=== PATIENT | female | born 1940 | race Caucasian/White ===

== ENCOUNTER 2022-09-22 12:35 | Observation (INO) ==
[2022-09-22 14:09] VITALS: BMI 26.9
--- NOTE | 2022-09-22 15:16 | EKG ---
Test Reason : sob Blood Pressure : */* mmHG Vent. Rate : 69 BPM Atrial Rate : 69 BPM P-R Int : 132 ms QRS Dur : 92 ms QT Int : 426 ms P-R-T Axes : 57 27 47 degrees QTc Int : 456 ms Normal sinus rhythm Normal ECG No previous ECGs available Confirmed by Sukhi Cunningham ([id number]) on 09/24/2022 3:47:03 PM Referred By: Confirmed By: Sukhi Cunningham
[2022-09-22 15:35] LABS: BASOPHILS % (AUTO) 0.5 % (0.2-1.0); EOSINOPHILS # (AUTO) 0.1 x10^3/uL (0.0-0.2); HEMATOCRIT 32.1 % (36.0-47.0); HEMOGLOBIN 11.1 g/dL (12.0-16.0); LYMPHOCYTES # (AUTO) 1.1 X10^3/uL (1.3-2.9); LYMPHOCYTES % (AUTO) 21.5 % (21.0-51.0); MEAN CORPUSCULAR HGB CONC 34.7 g/dL (33.0-35.0); MEAN CORPUSCULAR VOLUME 89.4 fL (80.0-100.0); MEAN PLATELET VOLUME 9.3 fL (7.4-11.0); MONOCYTES # (AUTO) 0.4 x10^3/uL (0.3-0.8); MONOCYTES % (AUTO) 7.3 % (0.0-13.0); NEUTROPHILS # (AUTO) 3.4 x10^3/uL (2.2-4.8); NEUTROPHILS % (AUTO) 68.7 % (42.0-75.0); RED CELL DISTRIBUTION WIDTH 13.8 % (11.6-16.5)
[2022-09-22 15:46] LABS: ALANINE AMINOTRANSFERASE 14 Units/L (12-78); ALBUMIN 3.1 g/dL (3.4-5.0); ALKALINE PHOSPHATASE 101 Units/L (46-116); ASPARTATE AMINO TRANSFERASE 17 Units/L (15-37); BLOOD UREA NITROGEN 19 mg/dL (7-18); CALCIUM 8.4 mg/dL (8.5-10.1); CARBON DIOXIDE 36.4 mmol/L (21-32); CHLORIDE 104 mmol/L (98-107); COR CA(FOR HYPOALB) 9.1 mg/dL (8.5-10.1); CREATINE KINASE 120 Units/L (26-192); CREATININE 1.51 mg/dL (0.55-1.02); SODIUM 144 mmol/L (136-145); TOTAL PROTEIN 6.4 g/dL (6.4-8.2); eGFR NON BLACK RACES 35 (>60)
--- NOTE | 2022-09-22 16:11 | RAD ---
HISTORYCHF SOBSTUDYAP chestCOMPARISONNoneFINDINGSHeart size normal. There is mild pulmonary vascular congestion and interstitial prominence without evidence for airspace consolidation, pneumothorax or pleural fluid.IMPRESSIONMild pulmonary vascular congestion with interstitial prominence concerning for borderline CHF. Follow-up suggested.Electronically signed by: SONYA WHATLEY (Sep 22, 2022 16:09:55)
[2022-09-22] MEDS: LASIX IVP SCH (17:18)
[2022-09-22 18:12] LABS: BILIRUBIN,URINE NEGATIVE (NEGATIVE); BLOOD/HEMOGLOBIN,URINE NEGATIVE (NEGATIVE); GLUCOSE, URINE NEGATIVE (NEGATIVE); KETONES,URINE NEGATIVE (NEGATIVE); LEUKOCYTE ESTERASE ,URINE NEGATIVE (NEGATIVE); NITRITES,URINE NEGATIVE (NEGATIVE); PROTEIN,URINE NEGATIVE (NEGATIVE); UROBILINOGEN,URINE NORMAL (NORMAL)
[2022-09-22 18:14] LABS: APPEARANCE,URINE CLEAR (CLEAR); COLOR,URINE STRAW (YELLOW)
[2022-09-22 22:23] LABS: INR 1.52 (0.8-1.3)
[2022-09-22] MEDS ORDERED: COUMADIN TAB 2 MG (JANTOVEN) PO SCH (23:00)
[2022-09-22] MEDS ORDERED: ZOLOFT ONE (23:08)
[2022-09-22] MEDS: ZOLOFT PO SCH (23:11)
[2022-09-22] MEDS: NEURONTIN CAP 300 MG PO SCH (23:11)
[2022-09-23] MEDS: NEURONTIN CAP 300 MG PO SCH ×3 (05:27→21:06)
[2022-09-23 06:42] LABS: BASOPHILS % (AUTO) 0.6 % (0.2-1.0); EOSINOPHILS # (AUTO) 0.1 x10^3/uL (0.0-0.2); HEMATOCRIT 30.9 % (36.0-47.0); HEMOGLOBIN 10.8 g/dL (12.0-16.0); LYMPHOCYTES # (AUTO) 1.1 X10^3/uL (1.3-2.9); LYMPHOCYTES % (AUTO) 24.6 % (21.0-51.0); MEAN CORPUSCULAR HEMOGLOBIN 31.3 pg (27.0-34.0); MEAN CORPUSCULAR VOLUME 89.6 fL (80.0-100.0); MEAN PLATELET VOLUME 9.7 fL (7.4-11.0); MONOCYTES # (AUTO) 0.4 x10^3/uL (0.3-0.8); MONOCYTES % (AUTO) 8.3 % (0.0-13.0); NEUTROPHILS # (AUTO) 2.8 x10^3/uL (2.2-4.8); NEUTROPHILS % (AUTO) 64.5 % (42.0-75.0); RED BLOOD COUNT 3.44 X10^6/uL (3.5-5.4); RED CELL DISTRIBUTION WIDTH 13.6 % (11.6-16.5); WHITE BLOOD COUNT 4.3 X10^3/uL (3.6-10.0)
[2022-09-23 06:55] LABS: ALANINE AMINOTRANSFERASE 14 Units/L (12-78); ALBUMIN 2.9 g/dL (3.4-5.0); ALKALINE PHOSPHATASE 94 Units/L (46-116); ASPARTATE AMINO TRANSFERASE 17 Units/L (15-37); BLOOD UREA NITROGEN 19 mg/dL (7-18); CALCIUM 8.1 mg/dL (8.5-10.1); CARBON DIOXIDE 31.6 mmol/L (21-32); CHLORIDE 105 mmol/L (98-107); CREATININE 1.39 mg/dL (0.55-1.02); SODIUM 143 mmol/L (136-145); TOTAL PROTEIN 6.1 g/dL (6.4-8.2); eGFR NON BLACK RACES 39 (>60)
[2022-09-23 06:56] LABS: INR 1.54 (0.8-1.3)
[2022-09-23] MEDS ORDERED: ZOLOFT ONE ×2 (07:59→20:40)
[2022-09-23] MEDS: LASIX IVP SCH (08:37)
[2022-09-23] MEDS: VITAMIN D3 125 mcg (5,000 UNITS) PO SCH (08:38)
[2022-09-23] MEDS: LOPRESSOR TAB 25 MG PO SCH (08:38)
[2022-09-23] MEDS: ZOLOFT PO SCH ×2 (08:38→21:07)
[2022-09-23] MEDS: PROTONIX TAB 40 MG PO SCH (08:38)
[2022-09-23] MEDS ORDERED: COUMADIN TAB 4 MG (JANTOVEN) PO SCH (09:00)
[2022-09-23] MEDS: NORCO 10/325 TAB PO PRN ×2 (10:50→20:00)
[2022-09-23] MEDS ORDERED: POTASSIUM CHL 60 MEQ/NS 0.45% 500 ML IV PRN (10:55)
[2022-09-23] MEDS ORDERED: K-RIDER 10 MEQ/NS 100 ML 10 MEQ/100 ML BAG IV PRN (10:55)
[2022-09-23] MEDS ORDERED: KLOR-CON PO PRN (10:55)
[2022-09-23] MEDS ORDERED: POTASSIUM CHL 40 MEQ/NS 0.45% 500 ML IV PRN (10:55)
[2022-09-23] MEDS ORDERED: K-DUR TAB 20 MEQ PO PRN (10:55)
[2022-09-23] MEDS ORDERED: MICRO K EXTEN CAP 10 MEQ PO PRN (10:55)
[2022-09-23] MEDS ORDERED: NS 100 ML IV 100 ML ONE (11:47)
[2022-09-23] MEDS: MAGNESIUM SULFATE 1 GRAM/100 mL PREMIX 1 G/100 ML BAG IV PRN ×3 (11:52→15:01)
[2022-09-23] MEDS: POTASSIUM CHLORIDE LIQ 20 MEQ UDC PO PRN ×2 (11:53→16:40)
--- NOTE | 2022-09-23 12:42 | CT ---
HISTORYRIGHT SIDED HEADACHE, HAND NUMBNESSSTUDYBRAIN W/O CONCOMPARISONNoneTECHNIQUEMultiple CT axial images of the head were obtained without IV contrast. Coronal and sagittal images were reconstructed. Dose reduction techniques included Automated Exposure Control (AEC) and adjustment of mA and kV.FINDINGSAge-related findings include central and cortical atrophy with areas of low density in the periventricular white matter compatible with micro-ischemic changes. Other grimes and white matter have normal differentiation.There is no mass, shift, or hemorrhage. Cerebellar tonsils are at an appropriate level. No fluid in the sinuses or mucosal thickening to suggest sinusitis. There is no mastoid effusion.IMPRESSION1. No acute findingElectronically signed by: Nile Soliz (Sep 23, 2022 12:42:16)
[2022-09-23] MEDS ORDERED: LIPITOR TAB 20 MG PO SCH (21:00)
[2022-09-24] MEDS: NEURONTIN CAP 300 MG PO SCH (05:20)
[2022-09-24 06:34] LABS: BASOPHILS % (AUTO) 0.6 % (0.2-1.0); EOSINOPHILS # (AUTO) 0.2 x10^3/uL (0.0-0.2); EOSINOPHILS % (AUTO) 4.4 % (0.9-2.9); HEMATOCRIT 30.2 % (36.0-47.0); HEMOGLOBIN 10.2 g/dL (12.0-16.0); LYMPHOCYTES # (AUTO) 1.2 X10^3/uL (1.3-2.9); LYMPHOCYTES % (AUTO) 33.3 % (21.0-51.0); MEAN CORPUSCULAR HEMOGLOBIN 31.1 pg (27.0-34.0); MEAN CORPUSCULAR HGB CONC 33.9 g/dL (33.0-35.0); MEAN CORPUSCULAR VOLUME 91.5 fL (80.0-100.0); MEAN PLATELET VOLUME 9.6 fL (7.4-11.0); MONOCYTES # (AUTO) 0.3 x10^3/uL (0.3-0.8); MONOCYTES % (AUTO) 7.3 % (0.0-13.0); NEUTROPHILS % (AUTO) 54.4 % (42.0-75.0); RED CELL DISTRIBUTION WIDTH 13.9 % (11.6-16.5); WHITE BLOOD COUNT 3.6 X10^3/uL (3.6-10.0)
[2022-09-24 06:36] LABS: INR 1.76 (0.8-1.3)
[2022-09-24 06:45] LABS: ALANINE AMINOTRANSFERASE 12 Units/L (12-78); ALBUMIN 2.7 g/dL (3.4-5.0); ALKALINE PHOSPHATASE 89 Units/L (46-116); ASPARTATE AMINO TRANSFERASE 14 Units/L (15-37); BLOOD UREA NITROGEN 17 mg/dL (7-18); CARBON DIOXIDE 34.2 mmol/L (21-32); CHLORIDE 106 mmol/L (98-107); CREATININE 1.31 mg/dL (0.55-1.02); SODIUM 143 mmol/L (136-145); TOTAL PROTEIN 5.8 g/dL (6.4-8.2); eGFR NON BLACK RACES 42 (>60)
[2022-09-24] MEDS ORDERED: COUMADIN TAB 2 MG (JANTOVEN) PO SCH ×2 (07:50→09:00)
[2022-09-24] MEDS ORDERED: ZOLOFT ONE (08:45)
[2022-09-24] MEDS ORDERED: LASIX PO SCH (09:00)
[2022-09-24] MEDS: PROTONIX TAB 40 MG PO SCH (09:12)
[2022-09-24] MEDS: VITAMIN D3 125 mcg (5,000 UNITS) PO SCH (09:12)
[2022-09-24] MEDS: ZOLOFT PO SCH (09:12)
[2022-09-24] MEDS: LOPRESSOR TAB 25 MG PO SCH (09:21)
--- NOTE | 2022-09-24 11:10 | PCM.PROG ---
Progress Note Progress Note for Day of Date of Exam: 09/23/22 Subjective Subjective: Pt is a 82 year old female admitted for CHF exacerbation and non- intractable headache after failing outpatient treatment. This morning patient reports feeling a little better. She does still have a mild headache that has improved from yesterday. Labs/imaging: Wbc 4.3, Hgb 10.8, Plt 135, Na 143, K 3.5, Creatinine 1.39, Glucose 101, UA negative, CXR was obtained that revealed: Mild pulmonary vascular congestion with interstitial prominence concerning for borderline CHF. Pt is currently receiving IV Lasix 20mg BID. Home medications have been resumed. CT head ordered for further evaluation of headache. Otherwise will continue with current treatment plan. Continue to closely monitor and f ollow up labs/imaging. Past Medical Family Social History Allergies: Allergies No Known Allergies Allergy (Verified 09/22/22 13:58) Review of Systems ROS: No change since H&P Vital Signs and I&O's Vital Signs: Temperature 98.2 F Pulse Rate [Right Radial] 66 Respiratory Rate 18 Blood Pressure [Left Arm] 123/58 O2 Sat by Pulse Oximetry 95 Intake and Output: Intake & Output 09/21/22 09/22/22 09/23/22 09/24/22 23:59 23:59 23:59 23:59 Intake Total 690 / 690 1907 / 1907 220 / 220 Output Total 300 / 300 Balance 390 / 390 1907 / 1907 220 / 220 Physical Exam Oriented: Normal Eyes: Normal Ear: Normal Nose: Normal Respiratory: Normal Cardiovascular: Normal : Normal Auscultation: Bowel Sounds: Normal Palpation: Normal Tenderness: Normal Skin: Normal Musculoskeletal: Normal Psychiatric: Normal Speech Pattern: Clear and Appropriate Laboratory and Diagnostics Result Diagrams: 09/24/22 06:11 09/24/22 06:11 Labs: Laboratory WBC 3.6 X10^3/uL (3.6-10.0) 09/24/22 06:11 RBC 3.30 X10^6/uL (3.5-5.4) L 09/24/22 06:11 Hgb 10.2 g/dL (12.0-16.0) L 09/24/22 06:11 Hct 30.2 % (36.0-47.0) L 09/24/22 06:11 MCV 91.5 fL (80.0-100.0) 09/24/22 06:11 MCH 31.1 pg (27.0-34.0) 09/24/22 06:11 MCHC 33.9 g/dL (33.0-35.0) 09/24/22 06:11 RDW 13.9 % (11.6-16.5) 09/24/22 06:11 Plt Count 120 X10^3/uL (150.0-450.0) L 09/24/22 06:11 MPV 9.6 fL (7.4-11.0) 09/24/22 06:11 Neut % (Auto) 54.4 % (42.0-75.0) 09/24/22 06:11 Lymph % (Auto) 33.3 % (21.0-51.0) 09/24/22 06:11 [place] % (Auto) 7.3 % (0.0-13.0) 09/24/22 06:11 Eos % (Auto) 4.4 % (0.9-2.9) H 09/24/22 06:11 Baso % (Auto) 0.6 % (0.2-1.0) 09/24/22 06:11 Neut # (Auto) 2.0 x10^3/uL (2.2-4.8) L 09/24/22 06:11 Lymph # (Auto) 1.2 X10^3/uL (1.3-2.9) L 09/24/22 06:11 [place] # (Auto) 0.3 x10^3/uL (0.3-0.8) 09/24/22 06:11 Eos # (Auto) 0.2 x10^3/uL (0.0-0.2) 09/24/22 06:11 Baso # (Auto) 0.0 X10^3/uL (0.0-0.1) 09/24/22 06:11 Absolute Nucleated RBC 0.1 /100WBC 09/24/22 06:11 PT 19.9 SECONDS (11.8-14.3) 09/24/22 06:11 INR Target Range - 09/24/22 06:11 INR 1.76 (0.8-1.3) H 09/24/22 06:11 Sodium 143 mmol/L (136-145) 09/24/22 06:11 Corrected Sodium TNP 09/24/22 06:11 Potassium 3.4 mmol/L (3.5-5.1) L 09/24/22 06:11 Chloride 106 mmol/L (98-107) 09/24/22 06:11 Carbon Dioxide 34.2 mmol/L (21-32) H 09/24/22 06:11 BUN 17 mg/dL (7-18) 09/24/22 06:11 Creatinine 1.31 mg/dL (0.55-1.02) H 09/24/22 06:11 Est GFR (MDRD) Af Amer 50 (>60) L 09/24/22 06:11 Est GFR (MDRD) Non-Af 42 (>60) L 09/24/22 06:11 Glucose 101 mg/dL (65-99) H 09/24/22 06:11 Calcium 8.0 mg/dL (8.5-10.1) L 09/24/22 06:11 Corrected Calcium 9.0 mg/dL (8.5-10.1) 09/24/22 06:11 Magnesium 2.3 mg/dL (2.0-2.9) 09/24/22 06:11 Total Bilirubin 0.20 mg/dL (0.2-1.0) 09/24/22 06:11 AST 14 Units/L (15-37) L 09/24/22 06:11 ALT 12 Units/L (12-78) 09/24/22 06:11 Alkaline Phosphatase 89 Units/L (46-116) 09/24/22 06:11 Creatine Kinase 120 Units/L (26-192) 09/22/22 15:20 Troponin I High Sens 8.5 ng/L (4.0-60.0) 09/22/22 15:20 B-Natriuretic Peptide 35.4 pg/mL (0-79) 09/22/22 15:20 Total Protein 5.8 g/dL (6.4-8.2) L 09/24/22 06:11 Albumin 2.7 g/dL (3.4-5.0) L 09/24/22 06:11 Globulin 3.1 g/dL (2.5-4.5) 09/24/22 06:11 Albumin/Globulin Ratio 0.9 Ratio (1.1-2.1) L 09/24/22 06:11 Specimen Type Clean catch urine 09/22/22 17:55 Urine Color Straw (YELLOW) 09/22/22 17:55 Urine Appearance Clear (CLEAR) 09/22/22 17:55 Urine pH 7.0 (5.0 - 8.0) 09/22/22 17:55 Ur Specific [place] 1.015 (1.000-1.030) 09/22/22 17:55 Urine Protein Negative (NEGATIVE) 09/22/22 17:55 Urine Glucose (UA) Negative (NEGATIVE) 09/22/22 17:55 Urine Ketones Negative (NEGATIVE) 09/22/22 17:55 Urine Blood Negative (NEGATIVE) 09/22/22 17:55 Urine Nitrite Negative (NEGATIVE) 09/22/22 17:55 Urine Bilirubin Negative (NEGATIVE) 09/22/22 17:55 Urine Urobilinogen Normal (NORMAL) 09/22/22 17:55 Ur Leukocyte Esterase Negative (NEGATIVE) 09/22/22 17:55 Plan (1) CHF exacerbation: Status: Acute (2) Nonintractable headache: Status: Acute
--- NOTE | 2022-09-24 11:15 | W.DIS.FURT ---
Summary of Discharge Discharge Summary of Date Date of Exam: 09/24/22 Admission Date Date of Admission: 09/22/22 Admission Diagnosis Hospital Course: Pt is a 82 year old female admitted for CHF exacerbation and non-intractable headache after failing outpatient treatment. Her hospital/treatment course included receiving IV Lasix 20mg BID and her home medications were resumed. CT head ordered for further evaluation of headache that was negative for any acute neurological findings. Labs/imaging: Wbc 3.6, Hgb 10.2, Plt 120, Na 143, K 3.4, Creatinine 1.31, Glucose 101, UA negative. Pt responded well to treatments. Headache resolved. Pt was discharged in stable condition. Instructed to follow up with pcp in 1 week. Vital Signs: Vital Signs (72 hours) 09/22/22 13:50 09/22/22 13:30 09/22/22 16:00 Temperature 98.1 F Pulse Rate [Right Radial] 70 Respiratory Rate 18 Blood Pressure [Left Arm] 126/61 O2 Sat by Pulse Oximetry 97 Oxygen Delivery Method Nasal Cannula Room Air Room Air Oxygen Flow Rate 2 FIO2% 28 09/22/22 20:35 09/22/22 20:00 09/22/22 19:00 Temperature 98.0 F Pulse Rate [Right Radial] 70 Respiratory Rate 20 Blood Pressure [Left Arm] 121/60 O2 Sat by Pulse Oximetry 96 Oxygen Delivery Method Nasal Cannula Nasal Cannula Nasal Cannula Oxygen Flow Rate 2 2 2 FIO2% 28 09/23/22 00:00 09/23/22 04:00 09/23/22 08:36 Temperature 98.6 F 98.4 F Pulse Rate [Right Radial] 75 71 Respiratory Rate 18 21 Blood Pressure [Left Arm] 135/67 117/64 O2 Sat by Pulse Oximetry 94 L 95 Oxygen Delivery Method Nasal Cannula Nasal Cannula Nasal Cannula Oxygen Flow Rate 2 2 2 FIO2% 28 09/23/22 08:00 09/23/22 10:52 09/23/22 10:50 Temperature 97.8 F Pulse Rate [Right Radial] 82 Respiratory Rate 22 20 Blood Pressure [Left Arm] 118/65 O2 Sat by Pulse Oximetry 96 Oxygen Delivery Method Nasal Cannula Nasal Cannula Oxygen Flow Rate 2 2 FIO2% 09/23/22 11:52 09/23/22 12:00 09/23/22 16:00 Temperature 97.5 F L 97.6 F Pulse Rate [Right Radial] 67 60 Respiratory Rate 20 20 20 Blood Pressure [Left Arm] 101/52 111/57 O2 Sat by Pulse Oximetry 97 96 Oxygen Delivery Method Nasal Cannula Nasal Cannula Oxygen Flow Rate 2 2 FIO2% 09/23/22 20:00 09/23/22 20:00 09/23/22 20:00 Temperature 97.8 F Pulse Rate [Right Radial] 58 L Respiratory Rate 20 18 Blood Pressure [Left Arm] 115/58 O2 Sat by Pulse Oximetry 97 Oxygen Delivery Method Nasal Cannula Nasal Cannula Oxygen Flow Rate 2 2 FIO2% 28 09/23/22 19:00 09/23/22 21:00 09/24/22 00:00 Temperature 97.7 F Pulse Rate [Right Radial] 68 Respiratory Rate 18 21 Blood Pressure [Left Arm] 126/68 O2 Sat by Pulse Oximetry 95 Oxygen Delivery Method Nasal Cannula Nasal Cannula Oxygen Flow Rate 2 2 FIO2% 09/24/22 04:00 09/24/22 08:45 Temperature 98.2 F Pulse Rate [Right Radial] 66 Respiratory Rate 18 Blood Pressure [Left Arm] 123/58 O2 Sat by Pulse Oximetry 95 Oxygen Delivery Method Nasal Cannula Nasal Cannula Oxygen Flow Rate 2 2 FIO2% 28 Labs: Laboratory Last Values WBC 3.6 X10^3/uL (3.6-10.0) 09/24/22 06:11 RBC 3.30 X10^6/uL (3.5-5.4) L 09/24/22 06:11 Hgb 10.2 g/dL (12.0-16.0) L 09/24/22 06:11 Hct 30.2 % (36.0-47.0) L 09/24/22 06:11 MCV 91.5 fL (80.0-100.0) 09/24/22 06:11 MCH 31.1 pg (27.0-34.0) 09/24/22 06:11 MCHC 33.9 g/dL (33.0-35.0) 09/24/22 06:11 RDW 13.9 % (11.6-16.5) 09/24/22 06:11 Plt Count 120 X10^3/uL (150.0-450.0) L 09/24/22 06:11 MPV 9.6 fL (7.4-11.0) 09/24/22 06:11 Neut % (Auto) 54.4 % (42.0-75.0) 09/24/22 06:11 Lymph % (Auto) 33.3 % (21.0-51.0) 09/24/22 06:11 [place] % (Auto) 7.3 % (0.0-13.0) 09/24/22 06:11 Eos % (Auto) 4.4 % (0.9-2.9) H 09/24/22 06:11 Baso % (Auto) 0.6 % (0.2-1.0) 09/24/22 06:11 Neut # (Auto) 2.0 x10^3/uL (2.2-4.8) L 09/24/22 06:11 Lymph # (Auto) 1.2 X10^3/uL (1.3-2.9) L 09/24/22 06:11 [place] # (Auto) 0.3 x10^3/uL (0.3-0.8) 09/24/22 06:11 Eos # (Auto) 0.2 x10^3/uL (0.0-0.2) 09/24/22 06:11 Baso # (Auto) 0.0 X10^3/uL (0.0-0.1) 09/24/22 06:11 Absolute Nucleated RBC 0.1 /100WBC 09/24/22 06:11 PT 19.9 SECONDS (11.8-14.3) 09/24/22 06:11 INR Target Range - 09/24/22 06:11 INR 1.76 (0.8-1.3) H 09/24/22 06:11 Sodium 143 mmol/L (136-145) 09/24/22 06:11 Corrected Sodium TNP 09/24/22 06:11 Potassium 3.4 mmol/L (3.5-5.1) L 09/24/22 06:11 Chloride 106 mmol/L (98-107) 09/24/22 06:11 Carbon Dioxide 34.2 mmol/L (21-32) H 09/24/22 06:11 BUN 17 mg/dL (7-18) 09/24/22 06:11 Creatinine 1.31 mg/dL (0.55-1.02) H 09/24/22 06:11 Est GFR (MDRD) Af Amer 50 (>60) L 09/24/22 06:11 Est GFR (MDRD) Non-Af 42 (>60) L 09/24/22 06:11 Glucose 101 mg/dL (65-99) H 09/24/22 06:11 Calcium 8.0 mg/dL (8.5-10.1) L 09/24/22 06:11 Corrected Calcium 9.0 mg/dL (8.5-10.1) 09/24/22 06:11 Magnesium 2.3 mg/dL (2.0-2.9) 09/24/22 06:11 Total Bilirubin 0.20 mg/dL (0.2-1.0) 09/24/22 06:11 AST 14 Units/L (15-37) L 09/24/22 06:11 ALT 12 Units/L (12-78) 09/24/22 06:11 Alkaline Phosphatase 89 Units/L (46-116) 09/24/22 06:11 Creatine Kinase 120 Units/L (26-192) 09/22/22 15:20 Troponin I High Sens 8.5 ng/L (4.0-60.0) 09/22/22 15:20 B-Natriuretic Peptide 35.4 pg/mL (0-79) 09/22/22 15:20 Total Protein 5.8 g/dL (6.4-8.2) L 09/24/22 06:11 Albumin 2.7 g/dL (3.4-5.0) L 09/24/22 06:11 Globulin 3.1 g/dL (2.5-4.5) 09/24/22 06:11 Albumin/Globulin Ratio 0.9 Ratio (1.1-2.1) L 09/24/22 06:11 Specimen Type Clean catch urine 09/22/22 17:55 Urine Color Straw (YELLOW) 09/22/22 17:55 Urine Appearance Clear (CLEAR) 09/22/22 17:55 Urine pH 7.0 (5.0 - 8.0) 09/22/22 17:55 Ur Specific [place] 1.015 (1.000-1.030) 09/22/22 17:55 Urine Protein Negative (NEGATIVE) 09/22/22 17:55 Urine Glucose (UA) Negative (NEGATIVE) 09/22/22 17:55 Urine Ketones Negative (NEGATIVE) 09/22/22 17:55 Urine Blood Negative (NEGATIVE) 09/22/22 17:55 Urine Nitrite Negative (NEGATIVE) 09/22/22 17:55 Urine Bilirubin Negative (NEGATIVE) 09/22/22 17:55 Urine Urobilinogen Normal (NORMAL) 09/22/22 17:55 Ur Leukocyte Esterase Negative (NEGATIVE) 09/22/22 17:55 Reason For Visit: CHF, SOB, INTRACTABLE HEADACHE Discharge Date Discharge Date: 09/24/22 Discharge Diagnosis All Active Problems (Updated 09/24/22 @ 11:13 by Carson Ren) Nonintractable headache (Acute) CHF exacerbation (Acute) Plan of Treatment: Continue with present treatment and follow up plan. Pt is to keep follow up appointment as instructed and take medications as ordered. Discharge Medications Discharge Medications: No Known Allergies Allergy (Verified 09/22/22 13:58) CONTINUE taking the following medications atorvastatin 20 mg tablet 1 tab PO QPM 09/22/22 [History] cholecalciferol (vitamin D3) 125 mcg (5,000 unit) tablet (Vitamin D3) 125 mcg PO QDAY 09/22/22 [History] cyanocobalamin (vitamin B-12) 1,000 mcg/mL injection solution 1 ml subcut Q2W 09/22/22 [History] furosemide 80 mg tablet 1 tab PO QAM 09/22/22 [History] gabapentin 300 mg capsule 1 cap PO TID 09/22/22 [History] hydrocodone 10 mg-acetaminophen 325 mg tablet 1 tab PO QID 09/22/22 [History] metoprolol tartrate 25 mg tablet 0.5 tab PO QDAY 09/22/22 [History] pantoprazole 40 mg tablet,delayed release 1 tab PO QAM 09/22/22 [History] potassium chloride 20 mEq tablet,extended release 1 tab PO QDAY 09/22/22 [History] quetiapine 100 mg tablet 1 tab PO QPM 09/22/22 [History] sertraline 100 mg tablet 1 tab PO BID 09/22/22 [History] warfarin 4 mg tablet 1 tab PO PER PKG DIR 09/22/22 [History] Discharge Plan Discharge Plan Hospital Course: Pt is a 82 year old female admitted for CHF exacerbation and non-intractable headache after failing outpatient treatment. Her hospital/treatment course included receiving IV Lasix 20mg BID and her home medications were resumed. CT head ordered for further evaluation of headache that was negative for any acute neurological findings. Labs/imaging: Wbc 3.6, Hgb 10.2, Plt 120, Na 143, K 3.4, Creatinine 1.31, Glucose 101, UA negative. Pt responded well to treatments. Headache resolved. Pt was discharged in stable condition. Instructed to follow up with pcp in 1 week. Patient Disposition: HOME, SELF-CARE Condition: Stable Health Concerns: Post Hospitalization: new medications and changes needed to prevent readmission or further decline. Pt educated and given instructions on all concerns. Plan of Treatment: Continue with present treatment and follow up plan. Pt is to keep follow up appointment as instructed and take medications as ordered. Prescriptions: Continued atorvastatin 20 mg tablet 1 tab PO QPM sertraline 100 mg tablet 1 tab PO BID hydrocodone-acetaminophen 10-325 mg tablet 1 tab PO QID quetiapine 100 mg tablet 1 tab PO QPM warfarin 4 mg tablet 1 tab PO PER PKG DIR Rx Instructions: TAKE ONE TAB EVERY MONDAY, MONDAY, MONDAY. TAKE 1/2 TABLET EVERY MONDAY, MONDAY, MONDAY, MONDAY. furosemide 80 mg tablet 1 tab PO QAM pantoprazole 40 mg tablet,delayed release (DR/EC) 1 tab PO QAM cyanocobalamin (vitamin B-12) 1,000 mcg/mL solution 1 ml subcut Q2W gabapentin 300 mg capsule 1 cap PO TID metoprolol tartrate 25 mg tablet 0.5 tab PO QDAY potassium chloride 20 mEq tablet extended release 1 tab PO QDAY cholecalciferol (vitamin D3) [Vitamin D3] 125 mcg (5,000 unit) Tablet 125 mcg PO QDAY Orders to Discharge Patient Discharge Orders: Discharge (Routine); Ordered 09/24/22 Ordered By: Carson Ren Follow ups/Referrals Follow ups/Referrals: Jeremiah Baker [Primary Care Provider] - 1 WEEK Instructions Stand Alone Forms: Excuse From Work or School
[2022-09-24 14:48] VITALS: BP 118/60
[2022-09-25] MEDS ORDERED: COUMADIN TAB 2 MG (JANTOVEN) PO SCH (09:00)
== END 2022-09-24 16:30 | disposition home or self-care (01) ==
LOC: MED/SURG
PROVIDERS: ADMIT Internal Medicine; ATTEND Internal Medicine
DX: I11.0 Hypertensive heart disease with heart failure; I50.9 Heart failure, unspecified; R79.1 Abnormal coagulation profile; R20.0 Anesthesia of skin; R51.9 Headache, unspecified; R06.02 Shortness of breath